=== PATIENT | female | born 1960 | race Caucasian/White ===

== ENCOUNTER 2017-02-07 16:51 | Emergency (ER) | payer OTHER ==
[~2017-02-07] VITALS: Ht 162.6 cm; Wt 64.4 kg
== END 2017-02-07 17:20 | disposition home or self-care (01) ==
LOC: ED 16:51 → EDBD 16:52 → ED 17:20
DX: K64.4 Residual hemorrhoidal skin tags (principal)
CPT/HCPCS: 99282

== ENCOUNTER 2021-12-10 07:26 | Day surgery (SDC) | payer OTHER ==
[~2021-12-10] VITALS: Ht 162.6 cm; Wt 62.4 kg
[~2021-12-10 07:26] MED LIST: IBUPROFEN200 MG PO; LOPERAMIDE2 MG PO; MULTI VITAMIN1 EACH PO; PROBIOTIC1 EAC2 PO; VITAMIN D312.5 MCG/5 PO
--- NOTE | 2021-12-10 09:14 | NUR ---
12/10/21 0914 Sparkle Hummel 9354 PT ARRIVED TO PACU ON 2L VIA MASK, VSS. PT WAKES AND DENIES CONCERNS, PLAN OF CARE DISCUSSED. PT EASILY FALLS BACK TO SLEEP.
--- NOTE | 2021-12-11 07:04 | OR ---
[facility] [address], [place] [address] Signed DATE OF OPERATION: 12/10/2021 SURGEON: Abhishek Willams MD PREOPERATIVE DIAGNOSES: 1. Chronic alternating constipation diarrhea. 2. Occasional blood in stool. 3. Fecal urgency. POSTOPERATIVE DIAGNOSIS: [id number] external hemorrhoids with associated anal skin tags. PROCEDURES: Colonoscopy with random cold biopsies of the terminal ileum and the colon. ESTIMATED BLOOD LOSS: None. INDICATIONS: Tiago is a 61-year-old female, asked to see me for colonoscopy. This would be her initial colonoscopy. She tells me that I helped her boyfriend with his colonoscopy. As a result, she is familiar with this process. She has been under tremendous stress lately. Her boyfriend was diagnosed with prostate cancer, he has been cutbacks at work. She is now doing at least two different jobs and it has been very stressful. She describes chronic diarrhea for years, but also some constipation. Occasionally, she sees blood in the stool. She is having fecal urgency. She started with the GI group up in [place], [place] in January 2021. Her lab work and stool studies have all been negative, that group remains in transition. She has now come locally to have a colonoscopy. She has been keeping a food diary. She realizes that lactulose, fruits, vegetables, and wheat have all contributed to her diarrhea. She has been using loperamide as needed. I gave her a brochure in the office on irritable bowel syndrome. She also told me that she is using hydroxyzine as needed for sleep. She has no family history of colon cancer, colon polyps, or inflammatory bowel disease. I gave her a pamphlet on colonoscopy. We had reviewed the nature of the test. She understands there is risk including, but not limited to gas bloating, crampy abdominal pain, bleeding, perforation requiring surgery, and missed diagnosis. She also understands the need for IV conscious sedation. She had expressed understanding and wished to proceed. DESCRIPTION OF PROCEDURE: Tiago was taken into our endoscopy suite and placed in the left lateral decubitus Electronically Signed By: ABHISHEK WILLAMS MD 12/11/21 0704 PATIENT NAME: TIAGO PATEL OPERATIVE REPORT DATE OF : 64 REPORT #: [id number] PHYSICIAN: ABHISHEK WILLAMS MD PCP: KADEEM MCGILL REPORT IS CONFIDENTIAL AND NOT TO BE RELEASED WITHOUT AUTHORIZATION [facility] [address], [place] [address] Signed position. She was given 6 mg of Versed and 125 mcg of fentanyl. A digital rectal exam was performed. She does have small circumferential external hemorrhoids with associated skin tags. She had good sphincter tone. There were no masses. Adult colonoscope was introduced and advanced all around into the cecum under direct visualization of camera. It took just a little extra sedation and abdominal compression in order to advance the scope. Her prep was quite excellent. We could easily see the appendiceal orifice and the ileocecal valve. We turned the scope up into the terminal ilium about 10 cm, it was quite healthy. We went ahead and took a random biopsy of the terminal ileum due the history of diarrhea. The scope was brought back into the colon and withdrawn. We took several biopsies throughout the colon for pathologic review. The entire colon and rectum were unremarkable. There was no diverticulosis. No polyps. Upon retroflexion of scope, she has some tiny internal hemorrhoid tissue and skin tags. After this, the gas was suctioned out, colonoscope removed. Tiago tolerated the procedure quite well. RECOMMENDATIONS: Tiago can follow up in my office in 7 to 14 days to review her results. It appears her main issue is irritable bowel syndrome; however, there is advanced testing available if she so desires. Abhishek Willams MD ALB/MODL /[id number] cc: Abhishek Willams MD Patient Chart DONA Donis Copies: ABHISHEK WILLAMS MD, LINDA PA ~ Electronically Signed By: ABHISHEK WILLAMS MD 12/11/21 0704 PATIENT NAME: TIAGO PATEL OPERATIVE REPORT DATE OF : 64 REPORT #: [id number] PHYSICIAN: ABHISHEK WILLAMS MD PCP: KADEEM MCGILL REPORT IS CONFIDENTIAL AND NOT TO BE RELEASED WITHOUT AUTHORIZATION
== END 2021-12-10 09:45 | disposition home or self-care (01) ==
LOC: DS 07:26
PROVIDERS: ATTEND Colon & Rectal Surgery
PROC: 0DBE8ZX Excision of Large Intestine, Via Natural or Artificial Opening Endoscopic, Diagnostic (ICD-10-PCS; 2021-12-10)
PROC: 0DBB8ZX Excision of Ileum, Via Natural or Artificial Opening Endoscopic, Diagnostic (ICD-10-PCS; principal; 2021-12-10 08:15)
DX: K52.832 Lymphocytic colitis (principal); K59.00 Constipation, unspecified; K92.1 Melena; K64.4 Residual hemorrhoidal skin tags
CPT/HCPCS: 99153; G0500; J2250; J3010; J7121